=== PATIENT | male | born 1950 | race American Indian/Alaskan Native ===

== ENCOUNTER 2017-08-23 09:23 | Outpatient (CLI) | payer MEDICARE ==
--- NOTE | 2017-08-23 12:12 | XRay Report ---
XRAY LEFT KNEE FOUR VIEWS: 08/23/17 09:23:00 CLINICAL: Left knee pain. FINDINGS: Status post total joint replacement with normal appearance of the prosthesis. No fracture or dislocation. No joint effusion. A few vascular calcifications but otherwise normal soft tissues. IMPRESSION: Status post total knee replacement.
== END 2017-08-23 09:24 | disposition home or self-care (01) ==
LOC: SPVIMAG 09:23
PROVIDERS: ATTEND Orthopaedic Surgery Sports Medicine
DX: M25.862 Other specified joint disorders, left knee (principal); Z96.652 Presence of left artificial knee joint